=== PATIENT | female | born 1950 | race Caucasian/White ===

== ENCOUNTER 2024-03-26 15:12 | Inpatient (IN) | payer OTHER, SELFPAY ==
[2024-03-26] VITALS (13 sets, daily range): BP systolic 128–157; BP diastolic 79–94; BMI 28.5; BMI 28.1
--- NOTE | 2024-03-26 12:08 | ED.GENMED ---
History of Present Illness
General
Chief Complaint: Fall
Time Seen by Provider: 03/26/24 12:07
Travel History
Have you had any contact with someone who has COVID-19?: No
Do you have any symptoms of coronavirus? Fever > 100 degrees, chills, cough, shortness of breath, sore throat, loss of taste or smell, muscle aches, or headache?: No
History of Present Illness
History of Present Illness:
HPI: Patient fell and came in by ambulance and EMS noted deformity of the left knee. There was no head injury. EMS gave fentanyl prior to arrival. The patient has a history of polio and does have a limp normally. She does have a history of
remote surgery for polio (surgical scar of the anterior proximal left roy but has not had knee surgery)
EXAM:
GENERAL: Well appearing in no distress
CERVICAL SPINE: Excellent AROM
HEAD: No evidence of craniofacial trauma
CHEST: No chest wall tenderness, normal heart sounds
LUNGS: Equal lung sounds, no respiratory distress
ABDOMEN: No abdominal tenderness, no peritoneal signs
EXTREMITIES: There is deformity noted to the distal femur, there is no overlying open wound/laceration, there is marked decreased active range of motion due to pain at the left knee with attempted movement, there is a small surgical scar related to
polio surgery to the proximal anterior left tibia region midline, normal DP pulse to the left foot
NEURO: Good upper extremity strength all extremities, she does have some decreased strength at the left lower extremity related to history of polio, appropriate mental status, normal speech/language
TIME OF INITIAL ENCOUNTER: 12:30 PM
NUMBER AND COMPLEXITY OF PROBLEMS ADDRESSED AT THE ENCOUNTER
� Chronic conditions affecting care: Polio, high blood pressure
� Acute Exacerbation and/or Progression of Chronic Illness: This is an acute problem
� Differential Diagnosis includes: Femur fracture, tibial plateau fracture, knee sprain
AMOUNT AND/OR COMPLEXITY OF DATA TO BE REVIEWED AND ANALYZED
� I performed an independent evaluation of and my interpretation is:
EKG:
CT: Comminuted impacted intra-articular distal femur fracture noted
X-rays: Patient has a supracondylar distal left femur fracture with mild displacement
Laboratory Studies: CBC and chemistries unremarkable
Other:
� Review of other/old records: The patient had a colonoscopy in 2017
� Clinical information was obtained by an independent historian: I spoke to the at bedside
� Prescriptions/Medications Considered but not given:
� Further testing considered but not performed:
RISK OF COMPLICATIONS AND/OR MORBIDITY OR MORTALITY OF PATIENT MANAGEMENT
� Social determinants of health affecting care: Lives at home
� Discussion with other providers: I shared images and discussed case with Dr. Lorenzo�he recommends CT imaging and n.p.o. after midnight. Notified Dr. Villalba of admission at 1:20 PM.
� Escalation of care including admission/observation vs risk of discharge considered: Consider knee immobilizer however the patient is doing quite well with pain with a towel roll underneath her left knee. Basic labs
unremarkable. CT imaging pending.
Past History
Past History
ED Past Medical History: None
Social History
Tobacco: Non-smoker
Personal:
Phy Exam
Physical Exam
Physical Exam:
See HPI
Course
Orders/Labs/Results
Orders:
Orders
03/26/24 Breakfast
Cholesterol Lowering
At Your Request: Full Participation
Cholesterol Lowering: Sodium, 2 Gram
03/26/24 11:32
Knee, Left 1 or 2 Views [CR Knee - Left 1 Or 2 Views] Urgent
Comment:
Reason For Exam: injury/deformity
03/26/24 11:37
CBC/With Diff [Complete Blood Count/With Diff] Urgent
CMP [Comprehensive Metabolic Panel] Urgent
03/26/24 12:26
CT Lower Ext W/o Iv Cont Lt Urgent
Comment:
Reason For Exam: eval distlal L femur fx per Dr. Lorenzo
03/26/24 13:39
Admit/Transfer Patient As Directed
Co-Sign Provider:
Level of Care: Inpatient admission
Assign to:: Medical/Surgical
Physician / Group: hattie
Diagnosis: left femur fracture
Reason for Hospitalization: left femur fracture
Expected length of stay greater than two midnights?: Yes
ELOS- Estimated Length of Stay in days: 3
I certify the patient meets the requirements for IP care: Yes
03/26/24 13:40
Code Status As Directed
Resuscitation Status: Full Code
03/26/24 14:16
Braces/Immobilizers As Directed
Type of Brace/Immobilizer: Knee immobilizer
Location for Brace/Immobilizer: left leg
03/26/24 17:12
Acetaminophen [Tylenol] 650 mg PO Q4HWA
Magnesium Hydroxide [Milk of Magnesia] 30 ml PO DAILYPRN PRN
Oxycodone [Roxicodone] 5 mg PO Q4HPRN PRN
Tamsulosin [Flomax] 0.4 mg PO DAILYPRN PRN
03/26/24 17:12
ORTHOPEDIC CONSULT Routine
Consulting Provider: Espinoza Lorenzo
Was physician already notified: Yes
Activity As Directed
Activity Level: Bedrest
Bladder Scan As Directed
Follow Bladder Retention/Intermittent Cath Algorithm?: Yes
PRN if no void in __ hours: 6
Comment: if not voiding 6 hrs upon arrival to floor, bladder scan & follow algorithm
Intake/ Output As Directed
Frequency: Per unit guidelines
Straight Cath As Directed
Frequency: Per Retention Algorithm
Additional Instructions: straight cath as needed per acute urinary retention algorithm for 24 hrs
Additional Instructions: for bladder scan greater than 400 mL
Venous Foot Pumps As Directed
Location: Bilateral feet
Vital Signs As Directed
Frequency: Per unit guidelines
DX Deep Vein Thrombosis Video Routine
03/26/24 20:00
Docusate Sodium [Colace] 100 mg PO BID
Sennosides [Senokot] 17.2 mg PO BID
03/27/24 Breakfast
NPO
Allow oral meds: Yes
Allow clear liquids: No
03/27/24 08:00
Atorvastatin [Lipitor] 10 mg PO DAILY
Lisinopril [Zestril] 20 mg PO DAILY
Abnormal Lab Results
03/26/24
11:37
Absolute Neuts (auto) 6.7 H 10^3/uL
(1.4-6.5)
Glucose 124 H mg/dl
(70-99)
03/26/24 11:37
03/26/24 11:37
Vital Signs
Initial and Last Documented VS:
Initial Vital Signs
Temp Pulse Resp BP Pulse Ox
98.3 F 94 18 145/87 98
03/26/24 11:33 03/26/24 11:33 03/26/24 11:33 03/26/24 11:33 03/26/24 11:33
Last Documented Vital Signs
Temp Pulse Resp BP Pulse Ox
98.1 F 103 16 138/87 96
03/26/24 23:00 03/26/24 23:00 03/26/24 23:00 03/26/24 23:00 03/26/24 23:00
*Critical Care Note
Total Time (30-74mins, 75-104mins- exclusive of procedures): Not Applicable
ED Attending Note
-
Portions of this chart may have been created with voice recognition software.� Occasional wrong word or��sound alike� substitutions may have occurred due to the inherent limitations of voice recognition software.
Discharge Plan
Departure
Patient Disposition: Admit
Presentation/result/management discussed w/ accepting MD/DO: Hospitalist
Discharge Problem:
Fracture of distal end of femur
Interventions
Interventions:
*Risk Screen - Suicide Last Done: 03/26/24 11:33
*General Assessment Last Done: 03/26/24 11:33
*Neglect/Abuse Screening Last Done: 03/26/24 11:33
ED- Fall Risk Assessment Last Done: 03/26/24 11:55
*ED COVID-19 Vaccine History Last Done: 03/26/24 22:00
*Nursing Disposition Last Done: 03/26/24 21:56
ED-Musculoskeletal Assessment Last Done: 03/26/24 11:55
ED- Neurological Assessment Last Done: 03/26/24 11:55
ED-Skin Assessment Last Done: 03/26/24 11:55
Discharge Date and Time
Discharge Date/Time: 03/26/24 21:57
[2024-03-26 12:58] LABS: % Basophils 0.4 % (0-2); % Eosinophils 0.6 % (0-6); % Immature Granulocytes 0.3 % (0-0.5); % Lymphocytes 27.9 % (20.5-51.1); % Monocytes 4.8 % (1.7-9.3); Absolute Eosinophils 0.1 10^3/uL (0-0.7); Absolute Lymphocytes 2.8 10^3/uL (1.2-3.4); Absolute Monocytes 0.5 10^3/uL (0.1-0.6); Absolute Neutrophils 6.7 10^3/uL (1.4-6.5); Hemoglobin 13.5 g/dL (12.0-16.0); Mean Corp Hgb Conc. 33.8 g/dL (33.0-37.0); Mean Platelet Volume 9.8 fL (7.4-10.4); Nucleated Red Blood Cells % 0 %; Platelet Count 354 10^3/uL (130-400); Red Blood Cell Count 4.35 10^6/uL (4.20-5.40); Red Cell Dist. Width 12.2 % (11.5-14.5); White Blood Cell Count 10.2 10^3/uL (4.8-10.8)
[2024-03-26 13:13] LABS: ALT (SGPT) 17 U/L (0-35); AST (SGOT) 26 U/L (14-36); Albumin 4.6 g/dl (3.5-5.0); Alkaline Phosphatase 56 U/L (38-126); Blood Urea Nitrogen 16 mg/dl (7-17); Calcium 9.4 mg/dl (8.4-10.2); Carbon Dioxide 26 mmol/L (22-30); Chloride 100 mmol/L (98-107); Estimated Creatinine Clearance 67 ml/min; Glucose 124 mg/dl (70-99); Potassium 3.9 mmol/L (3.5-5.1); Sodium 137 mmol/L (135-145); Total Bilirubin 0.7 mg/dl (0.2-1.3); eGFR > 60.00
--- NOTE | 2024-03-26 13:23 | HPS.HSE ---
Family Physician
-
Family Physician:
Chief Complaint
-
fall
History of Present Illness
73-year-old with past medical history for hypertension, hyperlipidemia presented to us after a fall. As patient was turning with food in her hand, her shoe got caught and patient fell on her right side. Since then she is complaining of knee pain
and she could not move .patient denied any headache, dizziness, syncopal episode .patient denied fever, chills, chest pain, short of breath .patient denied abdominal pain, nausea, vomiting, diarrhea .patient denied dysuria materia .
Patient was noted to have left knee fracture. Admitting for further management
Medical History
Past Medical History
Past Medical History: Reports Other
Additional Past Medical History:
Osteoporosis
Osteopenia
Hypertension hyperlipidemia
Past Surgical History: Reports Other
Additional Past Surgical History:
Tonsillectomy
Leg surgery
Social History
Tobacco: Non-smoker
Alcohol: Occasional
Drug: None
Personal:
Living: With Family
Family History
Family History: Not pertinent
Allergies / Home Medications
Allergies reflects when Allergies were last updated in [employer].
Home Medications with original date entered in [employer]
Allergy/Medication List:
Allergies
Allergy/AdvReac Type Severity Reaction Status Date / Time
No Known Allergies Allergy Unverified 02/17/11 17:11
Home Medications
cephalexin 500 mg capsule 500 mg PO TID #30 caps 02/17/11
Review of Systems
-
Constitutional: Reports No Symptoms
EENT: Reports No Symptoms
Respiratory: Reports No Symptoms
Cardiac: Reports No Symptoms
Abdomen/GI: Reports No Symptoms
: Reports No Symptoms
Musculoskeletal: Reports Other (Left knee abrasion)
Skin: Reports No Symptoms
Neurological: Reports No Symptoms
Endocrine: Reports No Symptoms
Hematologic/Lymphatic: Reports No Symptoms
Psych: Reports No Symptoms
Physical Exam
Vital Signs
Vital Signs
Temp Pulse Resp BP Pulse Ox
98.3 F 92 13 145/87 98
03/26/24 11:33 03/26/24 11:45 03/26/24 11:45 03/26/24 11:34 03/26/24 11:33
Physical Exam
General: Well Developed, Well Nourished and No Apparent Distress
HEENT: NormoCephalic, Moist mucous membranes and Atraumatic
Respiratory: Clear
Cardiac: S1/S2 and Regular Rhythm; No Murmur or Rub
GI: Soft, Non Tender, Non Distended and Normal Bowel Sounds; No Organomegaly
Rectal: Deferred by Provider
Musculoskeletal: No Clubbing, No Cyanosis and Other (Left knee abrasion, decreased range of motion)
Skin: No Rash
Neuro: AO x 3 and Nonfocal/grossly intact
Psych: Calm
Laboratory Results
-
03/26/24 11:37
03/26/24 11:37
Laboratory Results
Total Bilirubin 0.7 mg/dl (0.2-1.3) 03/26/24 11:37
AST 26 U/L (14-36) 03/26/24 11:37
ALT 17 U/L (0-35) 03/26/24 11:37
Alkaline Phosphatase 56 U/L (38-126) 03/26/24 11:37
Data Reviewed
-
Lab Data: Labs Reviewed by me
Impression/Plan
-
# Distal left femur fracture status post fall
-Knee x-ray pending
-CT of lower extremities pending
-PT OT consult status post orthopedic intervention
-Orthopedic consulted
-Tylenol/oxy for pain
-N.p.o. after midnight
# History of polio
# Essential hypertension
-Lisinopril continued
#hyperlipidemia
-Statin continued
#DVT prophylaxis
- SCD
# CODE STATUS
-Full code
--- NOTE | 2024-03-26 14:13 | W.PN.UPDATE ---
Addendum entered and electronically signed by Espinoza Lorenzo MD 03/26/24 16:36:
Patient seen and examined.
X-ray and CT reviewed
Left distal femur fracture.
Will proceed with ORIF tomorrow
Risks and benefits explained and consent obtained
Original Note:
Update Note
Progress Note Update
Full H&P to follow
73yo female presents to [place] ER for left knee pain. She was carrying food a a food pantry earlier today when she turned and her foot got caught causing her to fall. Xrays obtained in the ER show a left distal femur fracture.
Plan:
--Obtain CT left lower extremity
--Place in knee immobilizer
--Plan for OR tomorrow for left femur ORIF vs IMN
--NPO after midnight
--Pain management as needed
--- NOTE | 2024-03-26 16:28 | CON.ORTHO ---
Consultation
-
Date/Time Consultation Requested: 03/26/24 @12:50pm
Date/Time Consultation Performed: 03/26/24 @1:15pm
Requesting Provider: Davy Vann
Performing Provider: Patricia Rojas PA-C, Espinoza Lorenzo MD
Reason for Consultation: left distal femur fracture
Consultation - Orthopedics
History
HPI: 73yo female presents to the [place] ER for left knee pain. Earlier today, she was carrying food at a food pantry. She turned and her foot got caught causing her to fall to her right side. When she looked down, she noticed a deformity of her
left knee and did have pain in the knee. She is not exactly sure how her left knee bent. She was unable to bear weight. She was brought to the ER for further evaluation. Xrays were performed and show a left distal femur fracture. Currently, she
reports that her pain is well controlled as long as she does not move the knee. She does report a history of polio as a child and she did have surgery on the left leg as a child. She does not take any blood thinners.
PAST MEDICAL HISTORY: HTN, HLD, polio as a child
PAST SURGICAL HISTORY: left leg surgery as a child
SOCIAL HISTORY: denies tobacco, reports she drinks alcohol socially. Ambulates without assistive device at baseline
FAMILY HISTORY: noncontributory
REVIEW OF SYSTEMS: 12 point review of systems obtained and negative except those mentioned in the HPI
Allergies / Home Medications
Allergy/AdvReac Type Severity Reaction Status Date / Time
No Known Allergies Allergy Unverified 02/17/11 17:11
�Medication �Instructions �Recorded
atorvastatin 10 mg tablet 10 mg PO DAILY 03/26/24
lisinopril 20 mg tablet 20 mg PO DAILY 03/26/24
Vital Signs / Lab Results
Temp Pulse Resp BP Pulse Ox
98.3 F 92 13 145/87 98
03/26/24 11:33 03/26/24 11:45 03/26/24 11:45 03/26/24 11:34 03/26/24 11:33
03/26/24 11:37
03/26/24 11:37
RADIOGRAPHIC FINDINGS:
Xrays left knee show an oblique comminuted fracture of the distal left femur, centered approximately 5 cm above the distal femoral articular margin. There is minimal medial displacement of the distal fracture fragment with mild posterior
displacement and mild posterior angular displacement. Slight overriding of the fracture fragments.
PHYSICAL EXAM:
General: well developed well nourished female in no acute distress
HEENT: NCAT. sclera anicteric. normal hearing
Heart: No JVD
Lungs: normal work of breathing on room air
MSK: Directed exam of left knee reveals skin intact. there is an obvious deformity at the knee. +TTP over distal femur. ROM deferred. Calf soft and nontnder. NVI distallyyyy
Assessment / Plan
ASSESSMENT: 73yo female with left distal femur fracture following a mechanical fall
PLAN: Unfortunately, Mrs. Grover has sustained a left distal femur fracture following a mechanical fall earlier today. Recommend obtaining CT scan of left lower extremity for further evaluation of the fracture. This fracture will require surgical
fixation with left femur ORIF vs. IMN. Will plan for OR tomorrow under the direction of Dr. Lorenzo. The risks, benefits, potential complications, and expected postop course were reviewed. Surgical and blood consents were obtained and placed at the OR
desktop manager. She is to remain non weight bearing to the left leg in knee immobilizer (order placed for KI). NPO past midnight. Ancef production sampler to OR. Pain management as needed. Will continue to follow along.
--- NOTE | 2024-03-26 16:57 | W.PN.UPDATE ---
Update Note
Progress Note Update
This note serves as an addendum to the H&P by ABRAHAM Mcfadden, on March 26, 2024.
HPI
73-year-old with past medical history for polio, hypertension, hyperlipidemia presented to us after a mechanical fall. Patient was at a food pantry, and as patient was turning with food in her hand, her shoe got caught and patient fell on her right
side. Since then she is complaining of knee pain and she could not move her LLE. Patient denied having any headache, dizziness, syncopal episode, chest pain, palpitations or SOB. Patient denied abdominal pain, nausea, vomiting or diarrhea.
Vital Signs: AFVSS
Physical Exam
General: Well Developed, Well Nourished and No Apparent Distress
HEENT: Normocephalic, Moist mucous membranes and Atraumatic
Respiratory: Clear
Cardiac: S1/S2 and Regular Rhythm; No Murmur or Rub
GI: Soft, Non Tender, Non Distended and Normal Bowel Sounds
Musculoskeletal: No Clubbing, No Cyanosis and Other (Left knee abrasion, LLE decreased range of motion due to pain). 2+ pulses distally in bilateral lower extremities.
Skin: Warm. Dry.
Neuro: AAO x 3 and Nonfocal/grossly intact
Psych: Calm
Assessment/Plan
# Distal left femur fracture status post fall
-Knee x-ray pending
-CT of lower extremities pending
-PT OT consult status post orthopedic intervention
-Orthopedic consulted
-Remain non weight bearing to the left leg in knee immobilizer (order placed for KI by orthopedics
-Plan for OR tomorrow for left femur ORIF vs IMN
-NPO after midnight
-Tylenol/oxy for pain
# History of polio
# Essential hypertension
-Lisinopril continued
#hyperlipidemia
-Statin continued
#DVT prophylaxis
- SCDs. Okay to do Lovenox subq 1x 40 mg dose on March 26, [address] Lorenzo of orthopedics.
# CODE STATUS
-Full code
[2024-03-26] MEDS: LOVENOX 40 MG SC (18:32)
[2024-03-26] MEDS: SENOKOT 17.1999999999999993 MG PO ×2 (21:25)
[2024-03-26] MEDS: COLACE 100 MG PO (21:25)
--- NOTE | 2024-03-26 21:45 | PTCARENOTE ---
Pt. arriving to [facility] [address] from ER via stretcher and pulled over to room bed. Pt. A&Ox3, even and nonlabored breathing on RA, and VSS. Bed locked and in lowest position, side rails in place, call light within reach.
[2024-03-26] MEDS: ROXICODONE 5 MG PO (22:13)
[2024-03-27] VITALS (21 sets, daily range): BP systolic 65–130; BP diastolic 23–78
--- NOTE | 2024-03-27 05:39 | W.PN.UPDATE ---
Update Note
Progress Note Update
Patient lying in bed comfortably. Pain is controlled at this time at rest. She is for left distal femur ORIF with Dr. Lorenzo this afternoon. Hgb this AM currently pending. She will remain NPO.
[2024-03-27 07:59] LABS: Hematocrit 37.6 % (37.0-47.0); Hemoglobin 12.7 g/dL (12.0-16.0)
[2024-03-27] MEDS: COLACE 100 MG PO ×2 (08:53→19:32)
[2024-03-27] MEDS: LIPITOR 10 MG PO (08:54)
[2024-03-27] MEDS: ZESTRIL 20 MG PO (08:54)
--- NOTE | 2024-03-27 13:19 | PN.CDI ---
CDI
- -
CDI:
Physician Documentation Request
Admit Date: 03/26/24 15:12
Dear Doctor Sophia,
Patient admitted with distal left femur fracture status post fall.
H&P, 'As patient was turning with food in her hand, her shoe got caught and patient fell on her right side.'
02/02/16 Bone density Survey, 'IMPRESSION: Osteopenia.'
Please provide in your note the likely etiology/ etiologies of the the left femur fracture:
Multifactorial due to low level fall and age- related osteoporosis
Low level fall only
Other
Use of terms such as suspected, likely, concern for, or probable (associated with a specific diagnosis that is being evaluated, monitored, or treated as if it exists) are acceptable and can be coded in the inpatient setting, when documented at the
time of discharge.
Thank you,
Beverly LUNDBERG,RN,CCDS
CDI Specialist
Available via [employer] text
Please use your independent medical judgment in providing your response.
--- NOTE | 2024-03-27 14:29 | W.PN.HOSP.TC ---
Today's Communication/Plan
-
Surgery today
PT/OT after surgery
Appreciate orthopedics
Assessment / Plan
Assessment / Plan
Physical Exam
General: Well Developed, Well Nourished and No Apparent Distress
HEENT: Normocephalic, Moist mucous membranes and Atraumatic
Respiratory: Clear
Cardiac: S1/S2 and Regular Rhythm; No Murmur or Rub
GI: Soft, Non Tender, Non Distended and Normal Bowel Sounds
Musculoskeletal: No Clubbing, No Cyanosis and Other (Left knee abrasion, LLE decreased range of motion due to pain). 2+ pulses distally in bilateral lower extremities.
Skin: Warm. Dry.
Neuro: AAO x 3 and Nonfocal/grossly intact
Psych: Calm
Assessment/Plan
# Distal left femur fracture status post fall multifactorial due to low level fall and age-related osteopenia
-Knee x-ray results noted
-CT of LLE noted
-PT OT consult status post orthopedic intervention/surgery
-Orthopedic consulted
-Remain non weight bearing to the left leg in knee immobilizer (order placed for KI by orthopedics
-Plan for OR today for left femur ORIF vs IMN
-NPO for surgery
-Tylenol/oxy for pain
# History of polio
# Essential hypertension
-Lisinopril continued
#hyperlipidemia
-Statin continued
#DVT prophylaxis
- SCDs. Chemical DVT Prophylaxis after surgery as per orthopedics.
# CODE STATUS
-Full code
Anticipated Discharge: 24 - 48 hours
Subjective/Interval History
-
Date of Service: March 27, 2024
Objective Data
-
Labs:
Laboratory Results
03/27/24
06:49
Hgb 12.7
Hct 37.6
Vital Signs:
Vital Signs
Temp Pulse Resp BP Pulse Ox
98.7 F 71 18 129/72 96
03/27/24 07:48 03/27/24 07:48 03/27/24 07:48 03/27/24 07:48 03/27/24 07:48
I&O
03/26/24 03/27/24 03/28/24
06:59 06:59 06:59
Intake Total 480 / 480
Output Total 200 / 200
Balance 280 / 280
--- NOTE | 2024-03-27 16:32 | W.IMMPOSTOP ---
Surgical Immed Post Op Note
-
Primary Surgeon: Maura
Assisting Surgeon: Chelo Robertson PA-C
Pre-op Diagnosis: Left distal femur fracture
Post-op Diagnosis: Same
Procedure Performed: Left distal femur ORIF
Anesthesia Type: Spinal
Specimen / Cultures: None
Estimated Blood Loss: 20cc
Complications: None
Operative Findings: Dictated [id number]
Plan:
- NWB
- ASA 325mg Daily for 30 days
- PT/ OT
[2024-03-27] MEDS: NORMOSOL-R 1000 IV (17:24)
[2024-03-27] MEDS: ASPIRIN 325 MG PO (18:02)
--- NOTE | 2024-03-27 18:05 | PTCARENOTE ---
Pt returned to 2S in bed. LLE NWB, knee immobilizer in place. LLE with decreased movement, neurovascular assessment WDL. IVF infusing per order. L hip aquacel with scant drainage. Bed locked and in the lowest position, safety maintained. Oriented to
room and call granados, spouse at bedside.
[2024-03-27] MEDS: SENOKOT 17.1999999999999993 MG PO (19:32)
[2024-03-27] MEDS: ROXICODONE 5 MG PO (20:47)
[2024-03-27] MEDS: ANCEF 5 IV (20:47)
[2024-03-28] MEDS: ROXICODONE 10 MG PO (00:41)
[2024-03-28 04:00] VITALS: BP 115/63
[2024-03-28] MEDS: NORMOSOL-R 1000 IV (04:00)
[2024-03-28] MEDS: ANCEF 5 IV (05:23)
[2024-03-28] MEDS: FLOMAX 0.400000000000000022 MG PO (06:21)
--- NOTE | 2024-03-28 06:24 | PTCARENOTE ---
patient with post void residual of 650 ml. patient would like to avoid being straight catheterized, although this RN educated patient as to situation of retaining urine. Patient given flomax per order; pt states they would like to wait and see if
medication helps first before catheterization.
--- NOTE | 2024-03-28 08:09 | W.PN.ORTHO ---
Today's Communication / Plan
-
74 year old female POD1 left ORIF distal femur fracture under the direction of Dr. Lorenzo
--Patient should remain non-weight bearing to her left lower extremity. Knee immobilizer at all times. We appreciate the assistance of PT/OT.
--Recommend ASA 325 mg daily x4 weeks for DVT ppx.
--Pain control per primary. Ice and elevation for edema control.
--Hgb pending this AM. Continue to monitor.
--Maintain surgical dressing until 7-10 days post-op. Staple removal at 2 weeks post-op.
--Case management consult for dc planning.
--Orthopedics will continue to follow along.
Assessment
.
Distal Motor Intact: Yes
Dressing:
Clean, dry and intact.
Plan
.
Surgery / Date: L femur ORIF, Maura, 03/27
DVT Prophylaxis: Aspirin
Activity:
Out of bed.
PT/OT
Subjective
.
.:
Ms. Grover is POD1 following her ORIF left distal femur fracture performed by Dr. Lorenzo. She is resting comfortably in bed this morning, and reports her pain is well controlled at present. She has no questions or concerns at this time.
Vital Signs and Labs
.
Vital Signs and Labs:
Temp Pulse Resp BP Pulse Ox
98.4 F 76 18 115/63 92
03/28/24 04:00 03/28/24 04:00 03/28/24 04:00 03/28/24 04:00 03/28/24 04:00
Physical Exam
-
Directed exam of the left lower extremity reveals surgical dressing clean, dry and intact. Thigh soft and compressible. Calf soft and nontender. Neurovascularly intact distally.
[2024-03-28 08:16] VITALS: BP 134/73
[2024-03-28 08:19] LABS: % Basophils 0.2 % (0-2); % Eosinophils 0.1 % (0-6); % Immature Granulocytes 0.3 % (0-0.5); % Lymphocytes 17.9 % (20.5-51.1); % Monocytes 8.7 % (1.7-9.3); % Neutrophils 72.8 % (42.2-75.2); Absolute Lymphocytes 1.7 10^3/uL (1.2-3.4); Absolute Monocytes 0.8 10^3/uL (0.1-0.6); Absolute Neutrophils 6.7 10^3/uL (1.4-6.5); Hematocrit 31.7 % (37.0-47.0); Hemoglobin 10.6 g/dL (12.0-16.0); Mean Corp Hgb Conc. 33.4 g/dL (33.0-37.0); Mean Corpuscular Hgb 30.5 pg (27.0-31.0); Mean Corpuscular Volume 91.4 fL (81.0-99.0); Mean Platelet Volume 9.4 fL (7.4-10.4); Nucleated Red Blood Cells % 0 %; Platelet Count 289 10^3/uL (130-400); Red Blood Cell Count 3.47 10^6/uL (4.20-5.40); Red Cell Dist. Width 12.2 % (11.5-14.5); White Blood Cell Count 9.3 10^3/uL (4.8-10.8)
[2024-03-28] MEDS: ASPIRIN 325 MG PO (08:38)
[2024-03-28] MEDS: COLACE 100 MG PO ×2 (08:38→19:43)
[2024-03-28] MEDS: SENOKOT 17.1999999999999993 MG PO ×2 (08:38→19:43)
[2024-03-28] MEDS: LIPITOR 10 MG PO (08:38)
[2024-03-28] MEDS: ZESTRIL 20 MG PO (08:38)
[2024-03-28 09:06] LABS: ALT (SGPT) 11 U/L (0-35); AST (SGOT) 21 U/L (14-36); Albumin 3.5 g/dl (3.5-5.0); Alkaline Phosphatase 51 U/L (38-126); Blood Urea Nitrogen 8 mg/dl (7-17); Calcium 8.6 mg/dl (8.4-10.2); Carbon Dioxide 25 mmol/L (22-30); Chloride 99 mmol/L (98-107); Estimated Creatinine Clearance 65 ml/min; Glucose 113 mg/dl (70-99); Magnesium 2.2 mg/dl (1.6-2.3); Sodium 131 mmol/L (135-145); Total Bilirubin 0.7 mg/dl (0.2-1.3); Total Protein 5.6 g/dl (6.3-8.2); eGFR > 60.00
[2024-03-28 11:00] VITALS: BP 142/83
--- NOTE | 2024-03-28 11:17 | PTCARENOTE ---
Pt given Flomax 0.4mg this AM at 0621. Pt given time to urinate after refusing straight cath. Pt urinated twice; once for 100 mL and the second time for 125 mL. I bladder scanned the patient for 661 mL. Pt educated on the need to straight cath due
to retaining urine. Pt now agreeable to straight cath. Dr. Cortes notified. Will straight cath pt.
[2024-03-28 11:38] VITALS: BP 150/80; PULSE 95; O2SAT 96
--- NOTE | 2024-03-28 11:52 | CM ---
Initial assessment completed with patient and who live in a 2 story home with basement, 2 steps to enter, B/B on 2nd and 1/2 bath on , no DME in home and no in-home services, RECREATION AIDE was independent and drove, no psychiatric hospitalizations.
Pharmacy is [facility] in [place], PCP is [facility]. Therapy recommendation is home with VN PT/OT and will need RW, Wheelchair and bedside commode. Referral to HH.
[2024-03-28] MEDS: NORMOSOL-R IV ×2 (13:18→21:38)
--- NOTE | 2024-03-28 14:31 | CM ---
Addendum entered by Jb Keller 03/28/24 14:45:
PATIENT HAS FRIEND WHO HAS THE RW, COMMODE AND WHEELCHAIR. SHE WILL USE HIS EQUIPMENT. CANCELLED REQUEST FOR EQUIPMENT. Will have [facility] VN, PT/OT services.
Original Note:
Therapy recommending PT/OT, RW, W/CH and bedside commode. Referral to [facility] for VN, PT/OT. Script prepared for RW and commode and placed in chart for day of Discharge for OT/PT to bring to floor. W/CH script and documentation faxed to [employer]
for Wheelchair upon discharge to be delivered to home.
[2024-03-28 15:05] VITALS: BP 106/62
--- NOTE | 2024-03-28 16:19 | CHAP ---
Vijaya was in good spirits - hoping to go home soon. Emotional and spiritual support provided.
--- NOTE | 2024-03-28 16:35 | W.PN.HOSP.TC ---
Today's Communication/Plan
-
PT/OT
Discharge planning
Assessment / Plan
Assessment / Plan
Physical Exam
General: Well Developed, Well Nourished and No Apparent Distress
HEENT: Normocephalic, Moist mucous membranes and Atraumatic
Respiratory: Clear
Cardiac: S1/S2 and Regular Rhythm; No Murmur or Rub
GI: Soft, Non Tender, Non Distended and Normal Bowel Sounds
Musculoskeletal: No Cyanosis and Other (LLE surgery dressing C/D/I). 2+ pulses distally in bilateral lower extremities.
Skin: Warm. Dry.
Neuro: AAO x 3 and Nonfocal/grossly intact
Psych: Calm
Assessment/Plan
# Distal left femur fracture status post fall multifactorial due to low level fall and age-related osteopenia status post left distal femur open reduction internal fixation.
-Knee x-ray results noted
-CT of LLE noted
-PT OT consult status post orthopedic intervention/surgery
-Orthopedic consulted, appreciated
-Remain non-weight bearing to her left lower extremity. Knee immobilizer at all times.
-PT/OT
-ASA 325 mg daily x4 weeks for DVT ppx (first day was March 27, 2024)
-Pain control per primary. Ice and elevation for edema control.
-Continue to monitor Hgb
-Maintain surgical dressing until 7-10 days post-op (operation date was 03/27/24). Staple removal at 2 weeks post-op.
# History of polio
# Essential hypertension
-Lisinopril continued
#hyperlipidemia
-Statin continued
#DVT prophylaxis
- SCDs. Aspirin for DVT prophylaxis.
# CODE STATUS
-Full code
Anticipated Discharge: 24 - 48 hours
Subjective/Interval History
-
Date of Service: March 28, 2024
Patient was seen and examined. She denied any significant pain or any other symptoms or complaints.
Objective Data
-
Labs:
Laboratory Results
03/28/24
07:39
WBC 9.3
Hgb 10.6 L
Hct 31.7 L
Plt Count 289
Sodium 131 L
Potassium 4.0
Chloride 99
Carbon Dioxide 25
BUN 8
Creatinine 0.5 L
Glucose 113 H
Calcium 8.6
Total Bilirubin 0.7
AST 21
ALT 11
Alkaline Phosphatase 51
Vital Signs:
Vital Signs
Temp Pulse Resp BP Pulse Ox
98.8 F 112 17 106/62 95
03/28/24 15:05 03/28/24 15:05 03/28/24 15:05 03/28/24 15:05 03/28/24 15:05
I&O
03/27/24 03/28/24 03/29/24
06:59 06:59 06:59
Intake Total 480 / 480 1540 / 1540
Output Total 200 / 200 475 / 475 1000 / 1000
Balance 280 / 280 1065 / 1065 -1000 / -1000
[2024-03-28 23:11] VITALS: BP 127/76
[2024-03-29] MEDS: ROXICODONE 10 MG PO (00:34)
[2024-03-29 07:00] VITALS: BP 130/65
--- NOTE | 2024-03-29 08:00 | W.PN.UPDATE ---
Update Note
Progress Note Update
Ms. Grover is POD2 following her left ORIF distal femur fracture. She is resting comfortably in bed this morning, and reports any pain is well controlled at present. She was able to work with physical therapy yesterday without difficulty. She is
planning on dc home once cleared by medicine.
Directed exam of left knee reveals Aquacel dressing clean, dry and intact. Expected post-operative edema throughout the LLE. Calf soft and nontender. Neurovascularly intact distally. VSS.
Hgb 10.6 yesterday, pending this AM.
74 year old female POD2 left ORIF distal femur fracture under the direction of Dr. Lorenzo
--Patient should remain non-weight bearing to her left lower extremity. Knee immobilizer at all times. When placing the immobilizer, the knee joint should be positioned in the middle of the immobilizer where there is a cutout. If the brace is placed
too low, it does not adequately immobilize the joint. This was reviewed with the patient.
--We appreciate the assistance of PT/OT.
--Recommend ASA 325 mg daily x4 weeks for DVT ppx.
--Pain control per primary. Ice and elevation for edema control.
--Hgb pending this AM. Continue to monitor.
--Maintain surgical dressing until 7-10 days post-op. Staple removal at 2 weeks post-op.
--Case management consult for dc planning.
--Patient is stable post-operatively from an orthopedic standpoint. Orthopedics will sign off for now. Discharge once medically stable. Please reach out with any additional orthopedic questions or concerns.
[2024-03-29] MEDS: SENOKOT 17.1999999999999993 MG PO ×2 (08:02→19:50)
[2024-03-29] MEDS: COLACE 100 MG PO ×2 (08:02→19:50)
[2024-03-29] MEDS: LIPITOR 10 MG PO (08:02)
[2024-03-29] MEDS: ZESTRIL 20 MG PO (08:02)
[2024-03-29] MEDS: ASPIRIN 325 MG PO (08:02)
[2024-03-29 08:40] LABS: % Basophils 0.3 % (0-2); % Eosinophils 0.5 % (0-6); % Immature Granulocytes 0.5 % (0-0.5); % Lymphocytes 26.8 % (20.5-51.1); % Monocytes 10.7 % (1.7-9.3); % Neutrophils 61.2 % (42.2-75.2); Absolute Lymphocytes 2.4 10^3/uL (1.2-3.4); Absolute Monocytes 0.9 10^3/uL (0.1-0.6); Absolute Neutrophils 5.4 10^3/uL (1.4-6.5); Hematocrit 28.8 % (37.0-47.0); Hemoglobin 9.9 g/dL (12.0-16.0); Mean Corp Hgb Conc. 34.4 g/dL (33.0-37.0); Mean Corpuscular Hgb 30.7 pg (27.0-31.0); Mean Corpuscular Volume 89.4 fL (81.0-99.0); Mean Platelet Volume 9.5 fL (7.4-10.4); Nucleated Red Blood Cells % 0 %; Platelet Count 271 10^3/uL (130-400); Red Blood Cell Count 3.22 10^6/uL (4.20-5.40); White Blood Cell Count 8.8 10^3/uL (4.8-10.8)
[2024-03-29 09:02] LABS: ALT (SGPT) 12 U/L (0-35); AST (SGOT) 29 U/L (14-36); Albumin 3.1 g/dl (3.5-5.0); Alkaline Phosphatase 49 U/L (38-126); Blood Urea Nitrogen 6 mg/dl (7-17); Calcium 8.8 mg/dl (8.4-10.2); Carbon Dioxide 24 mmol/L (22-30); Chloride 97 mmol/L (98-107); Estimated Creatinine Clearance 65 ml/min; Glucose 93 mg/dl (70-99); Magnesium 2.2 mg/dl (1.6-2.3); Potassium 3.7 mmol/L (3.5-5.1); Sodium 128 mmol/L (135-145); Total Protein 5.3 g/dl (6.3-8.2); eGFR > 60.00
[2024-03-29 10:01] VITALS: BP 116/68; PULSE 104
--- NOTE | 2024-03-29 11:44 | W.PN.HOSP.TC ---
Today's Communication/Plan
-
Hyponatremia Post-Op
-Asymptomatic
-Sodium worsening, now in the upper 120s
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
-Ordered urine osm, urine sodium, and serum osm
-Started PO Fluid Restriction 49 ounces
Assessment / Plan
Assessment / Plan
Physical Exam
General: Well Developed, Well Nourished and No Apparent Distress
HEENT: Normocephalic, Moist mucous membranes and Atraumatic
Respiratory: Clear
Cardiac: S1/S2 and Regular Rhythm; No Murmur or Rub
GI: Soft, Non Tender, Non Distended and Normal Bowel Sounds
Musculoskeletal: No Cyanosis and Other (LLE surgery dressing C/D/I). 2+ pulses distally in bilateral lower extremities.
Skin: Warm. Dry.
Neuro: AAO x 3 and Nonfocal/grossly intact
Psych: Calm
Assessment/Plan
# Distal left femur fracture status post fall multifactorial due to low level fall and age-related osteopenia status post left distal femur open reduction internal fixation.
-Knee x-ray results noted
-CT of LLE noted
-PT OT consult status post orthopedic intervention/surgery
-Orthopedic consulted, appreciated
-Remain non-weight bearing to her left lower extremity. Knee immobilizer at all times.
-PT/OT
-ASA 325 mg daily x4 weeks for DVT ppx (first day was March 27, 2024)
-Pain control per primary. Ice and elevation for edema control.
-Continue to monitor Hgb
-Maintain surgical dressing until 7-10 days post-op (operation date was 03/27/24). Staple removal at 2 weeks post-op.
#Post-Pp Urinary Retention
-March 28, 2024: straight cath total of 3 times and was bladder scanning for 500-600mL or more
-March 29, 2024: Patient voided 125 mL and post bladder scan is 230mL -- IMPROVEMENT FROM DAY BEFORE
-Continue Bladder Scan Protocol
#Hyponatremia Post-Op
-Sodium worsening, now in the upper 120s
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
-Ordered urine osm, urine sodium, and serum osm
-PO Fluid Restriction 49 ounces
# History of polio
# Essential hypertension
-Lisinopril continued
#hyperlipidemia
-Statin continued
#DVT prophylaxis
- SCDs. Aspirin for DVT prophylaxis.
# CODE STATUS
-Full code
Anticipated Discharge: 24 - 48 hours
Subjective/Interval History
-
Date of Service: March 29, 2024
Patient was seen and examined. She reported no pain or any other complaints.
Objective Data
-
Labs:
Laboratory Results
03/29/24
07:29
WBC 8.8
Hgb 9.9 L
Hct 28.8 L
Plt Count 271
Sodium 128 L
Potassium 3.7
Chloride 97 L
Carbon Dioxide 24
BUN 6 L
Creatinine 0.5 L
Glucose 93
Calcium 8.8
Total Bilirubin 1.0
AST 29
ALT 12
Alkaline Phosphatase 49
Vital Signs:
Vital Signs
Temp Pulse Resp BP Pulse Ox
99.0 F 84 16 130/65 96
03/29/24 07:00 03/29/24 07:00 03/29/24 07:00 03/29/24 08:02 03/29/24 08:00
I&O
03/28/24 03/29/24 03/30/24
06:59 06:59 06:59
Intake Total 1540 / 1540 1880 / 1880
Output Total 475 / 475 2225 / 2225
Balance 1065 / 1065 -345 / -345
[2024-03-29 13:51] LABS: Osmolality Serum 270 mOsm/kg (275-300)
[2024-03-29 15:00] VITALS: BP 110/65
[2024-03-29 15:14] LABS: Osmolality Urine 158 mOsm/kg (300-900)
[2024-03-29 15:25] LABS: Urine Sodium 13 mmol/L (30-90)
[2024-03-29 23:28] VITALS: BP 114/67
[2024-03-30 07:15] VITALS: BP 114/66
[2024-03-30 08:07] LABS: % Basophils 0.4 % (0-2); % Eosinophils 0.6 % (0-6); % Immature Granulocytes 0.3 % (0-0.5); % Lymphocytes 32.3 % (20.5-51.1); % Monocytes 9.4 % (1.7-9.3); Absolute Eosinophils 0.1 10^3/uL (0-0.7); Absolute Lymphocytes 2.5 10^3/uL (1.2-3.4); Absolute Monocytes 0.7 10^3/uL (0.1-0.6); Absolute Neutrophils 4.4 10^3/uL (1.4-6.5); Hematocrit 29.4 % (37.0-47.0); Hemoglobin 10.1 g/dL (12.0-16.0); Mean Corp Hgb Conc. 34.4 g/dL (33.0-37.0); Mean Corpuscular Hgb 30.9 pg (27.0-31.0); Mean Corpuscular Volume 89.9 fL (81.0-99.0); Mean Platelet Volume 9.3 fL (7.4-10.4); Nucleated Red Blood Cells % 0 %; Platelet Count 317 10^3/uL (130-400); Red Blood Cell Count 3.27 10^6/uL (4.20-5.40); Red Cell Dist. Width 12.1 % (11.5-14.5); White Blood Cell Count 7.8 10^3/uL (4.8-10.8)
[2024-03-30 08:35] LABS: ALT (SGPT) 18 U/L (0-35); AST (SGOT) 31 U/L (14-36); Albumin 3.1 g/dl (3.5-5.0); Alkaline Phosphatase 50 U/L (38-126); Blood Urea Nitrogen 8 mg/dl (7-17); Calcium 8.9 mg/dl (8.4-10.2); Carbon Dioxide 26 mmol/L (22-30); Chloride 102 mmol/L (98-107); Estimated Creatinine Clearance 65 ml/min; Glucose 105 mg/dl (70-99); Magnesium 2.2 mg/dl (1.6-2.3); Potassium 3.8 mmol/L (3.5-5.1); Sodium 134 mmol/L (135-145); Total Bilirubin 0.7 mg/dl (0.2-1.3); Total Protein 5.4 g/dl (6.3-8.2); eGFR > 60.00
--- NOTE | 2024-03-30 09:04 | W.PN.HOSP.TC ---
Today's Communication/Plan
-
OK for DC today
Assessment / Plan
Assessment / Plan
Physical Exam
General: Well Developed, Well Nourished and No Apparent Distress
HEENT: Normocephalic, Moist mucous membranes and Atraumatic
Respiratory: Clear
Cardiac: S1/S2 and Regular Rhythm; No Murmur or Rub
GI: Soft, Non Tender, Non Distended and Normal Bowel Sounds
Musculoskeletal: No Cyanosis and Other (LLE surgery dressing C/D/I). 2+ pulses distally in bilateral lower extremities.
Skin: Warm. Dry.
Neuro: AAO x 3 and Nonfocal/grossly intact
Psych: Calm
Assessment/Plan
# Distal left femur fracture status post fall multifactorial due to low level fall and age-related osteopenia status post left distal femur open reduction internal fixation.
-Knee x-ray results noted
-CT of LLE noted
-PT OT consult status post orthopedic intervention/surgery
-Orthopedic consulted, appreciated
-Remain non-weight bearing to her left lower extremity. Knee immobilizer at all times.
-PT/OT
-ASA 325 mg daily x4 weeks for DVT ppx (first day was March 27, 2024)
-Pain control per primary. Ice and elevation for edema control.
-Continue to monitor Hgb
-Maintain surgical dressing until 7-10 days post-op (operation date was 03/27/24). Staple removal at 2 weeks post-op.
-OK for DC today
#Post-Pp Urinary Retention
-March 28, 2024: straight cath total of 3 times and was bladder scanning for 500-600mL or more
-March 29, 2024: Patient voided 125 mL and post bladder scan is 230mL -- IMPROVEMENT FROM DAY BEFORE
-03/30 - patient stating she is urinating a lot, no retention
#Hyponatremia Post-Op
-likely SIADH post-op
-improved to 134 this AM
# History of polio
# Essential hypertension
-Lisinopril continued
#hyperlipidemia
-Statin continued
#DVT prophylaxis
- SCDs. Aspirin for DVT prophylaxis.
# CODE STATUS
-Full code
Anticipated Discharge: Today
Subjective/Interval History
-
Date of Service: March 30, 2024
patient feels ready to go home today
pain controlled - does not want to go out with opiates
she is now urinating without issue
Objective Data
-
Labs:
Laboratory Results
03/30/24
07:39
WBC 7.8
Hgb 10.1 L
Hct 29.4 L
Plt Count 317
Sodium 134 L
Potassium 3.8
Chloride 102
Carbon Dioxide 26
BUN 8
Creatinine 0.5 L
Glucose 105 H
Calcium 8.9
Total Bilirubin 0.7
AST 31
ALT 18
Alkaline Phosphatase 50
Vital Signs:
Vital Signs
Temp Pulse Resp BP Pulse Ox
99 F 87 16 114/66 94
03/30/24 07:15 03/30/24 07:15 03/30/24 07:15 03/30/24 07:15 03/30/24 07:15
I&O
03/29/24 03/30/24 03/31/24
06:59 06:59 06:59
Intake Total 1880 / 1880 1280 / 1280
Output Total 2225 / 2225 1275 / 1275
Balance -345 / -345 5 / 5
Review of Systems
-
History Source: Patient
All other systems: Reviewed and negative
Data Reviewed
-
Diagnostic Radiology: Report Reviewed by me
Labs: Labs Reviewed by me
--- NOTE | 2024-03-30 09:16 | W.DS.TRANS ---
DC Summary - [facility]
-
Discharge Instructions:
Discharge Diagnosis/Procedures Left distal femur fracture status post ORIF (03/27
)
Diet Restrict fluids to 48 oz
Activity Do not bear weight L leg
Additional Activity Non-weight bearing to her left lower extremity.
Knee immobilizer at all times. When placing the
immobilizer, the knee joint should be positioned
in the middle of the immobilizer where there is
a cutout. If the brace is placed too low, it
does not adequately immobilize the joint.
Driving Restrictions No driving
Bathing Restrictions None
Other Services VN,PT,OT
Instructions:
Stand-Alone Forms:
Changes to Home Medications: Yes
Discharge Medications:
DC Medications w/original date entered in [facility]
atorvastatin 10 mg tablet 10 mg PO DAILY High Cholesterol 03/26/24
lisinopril 20 mg tablet 20 mg PO DAILY Blood Pressure 03/26/24
aspirin 325 mg tablet 325 mg PO DAILY #25 tabs 03/30/24
Home Medication Changes
addition of asa 325
Pending Results: No
[2024-03-30] MEDS: ASPIRIN 325 MG PO (09:17)
[2024-03-30] MEDS: ZESTRIL 20 MG PO (09:17)
[2024-03-30] MEDS: LIPITOR 10 MG PO (09:17)
[2024-03-30] MEDS: SENOKOT 17.1999999999999993 MG PO (09:17)
[2024-03-30] MEDS: COLACE 100 MG PO (09:17)
--- NOTE | 2024-03-30 10:54 | CM ---
Patient has been medically cleared for discharge to home with [facility] VN, PT/OT services. Therapy recommended RW, W/CH and commode. Patient borrowed DME from a friend and did not want CM to order new equipment. will transport home.
[2024-03-30 11:40] VITALS: BP 137/75
--- NOTE | 2024-03-30 14:48 | W.DCSUMMARY ---
Discharge Summary
Discharge Data
Date of Admission: 03/26/24
Date of Discharge: 03/30/24
-
Pending Results: No
Hospital Course
Discharging Physician : Dr. Faith Belle
Disposition : Home with Home Health
Primary care physician : Dr. Cecilia Carr
Principal Discharge diagnosis : Left distal femur fracture status post ORIF (03/27/24), post-op hyponatremia likely secondary to SIADH
Hospital Course :
Ms. Vijaya Grover is a 74 yo woman with hx HTN, HLD who presents to the ER post fall complaining of left knee pain. She was found to have a distal left femur fracture. She was admitted to medicine with orthopedics consulting and underwent ORIF
on 03/27/24. Patient was instructed to remain non-weight bearing of LLE with knee immobilizer on at all times. She is started on asa 325mg PO QD for DVT PPx. Her pain was controlled and she denied need for opiates on DC. She was cleared by PT for
home health.
Post-op course complicated by hyponatremia to sodium 128 likely 2/2 SIADH that improved with fluid restriction. She is discharged with recs to continue fluid restriction and repeat BMP on Tuesday 04/03.
Time spent on discharge was 31 minutes.
Important imaging findings :
Procedure findings :
03/27/24
Pre-op Diagnosis: Left distal femur fracture
Post-op Diagnosis: Same
Procedure Performed: Left distal femur ORIF
Discharge Plan
-
Patient Disposition: Home with Home Care
Discharge Diagnosis/Procedures: Left distal femur fracture status post ORIF (03/27/24)
Diet: Restrict fluids to 48 oz
Activity: Do not bear weight L leg
Additional Activity: Non-weight bearing to her left lower extremity. Knee immobilizer at all times. When placing the immobilizer, the knee joint should be positioned in the middle of the immobilizer where there is a cutout. If the brace is placed
too low, it does not adequately immobilize the joint.
Driving Restrictions: No driving
Bathing Restrictions: None
Blood Work: BMP on Saturday04/03/24
Other Services: VN, PT and OT
Activity Restrictions/Additional Instructions:
(Date of surgery 03/27/24) Maintain surgical dressing until 7-10 days post-op. Staple removal at 2 weeks post-op.
Referrals:
Cecilia Carr PA [Family Provider] - in less than 1 week
Espinoza Lorenzo MD [Active] - in one to two weeks
Additional Discharge Medication Instructions: ASA 325 mg daily x4 weeks to prevent blood clots
Prescriptions:
New
aspirin 325 mg Tablet
325 mg PO DAILY Qty: 25 0RF
Continued
atorvastatin 10 mg Tablet
10 mg PO DAILY
lisinopril 20 mg Tablet
20 mg PO DAILY
Discharge Orders:
Discharge Patient (As Directed); Ordered 03/30/24
Ordered By: Faith Belle
Discharge Date and Time
Discharge Date/Time: 03/30/24 12:08
Print Language: PERUVIAN
== END 2024-03-30 12:08 | disposition home health service (06) | DRG 481 ==
LOC: 2 SOUTH 15:12
PROVIDERS: Student in an Organized Health Care Education/Training Program; ADMITTING PHYSICIAN Hospitalist; ATTENDING PHYSICIAN Student in an Organized Health Care Education/Training Program; CONSULT PHYSICIAN Orthopaedic Surgery; EMERGENCY PHYSICIAN Emergency Medicine; FAMILY PHYSICIAN Physician Assistant Medical
PROC: 0QSC04Z Reposition Left Lower Femur with Internal Fixation Device, Open Approach (ICD-10-PCS; 2024-03-27)
DX: S72.492A Other fracture of lower end of left femur, initial encounter for closed fracture (principal); E22.2 Syndrome of inappropriate secretion of antidiuretic hormone; I10 Essential (primary) hypertension; W18.30XA Fall on same level, unspecified, initial encounter; E78.5 Hyperlipidemia, unspecified; M81.0 Age-related osteoporosis without current pathological fracture; M85.80 Other specified disorders of bone density and structure, unspecified site; R33.8 Other retention of urine; Z79.899 Other long term (current) drug therapy; Z86.12 Personal history of poliomyelitis; Z88.6 Allergy status to analgesic agent
CPT/HCPCS: 73560; 73700; 76000; 80053; 83735; 83930; 83935; 84300; 85014; 85018; 85025; 86850; 86900; 86901; 97110; 97162; 97166; 97530; 99285